=== PATIENT | male | born 1945 | race Caucasian/White ===

== ENCOUNTER 2019-05-06 11:23 | Emergency (ER) | payer MEDICARE, OTHER, SELFPAY ==
[2019-05-06 11:24] VITALS: BP 144/80; PULSE 80; RESP 18; TEMP 36.1; O2SAT 98; BMI 29.0
--- NOTE | 2019-05-06 12:16 | EKG12_ITS ---
Test Reason : Blood Pressure : / mmHG Vent. Rate : 076 BPM Atrial Rate : 076 BPM P-R Int : 152 ms QRS Dur : 130 ms QT Int : 402 ms P-R-T Axes : 025 056 030 degrees QTc Int : 452 ms Sinus rhythm with Premature atrial complexes Right bundle branch block Inferior infarct , age undetermined Abnormal ECG Confirmed by KERMIT HERNANDEZ, BRYANNA ([id number]), deputy editor in chief KARLA HIRSCH ([id number]) on 05/10/2019 9:20:35 AM Referred By: ROBINSON Confirmed By:OSVALDO CARMEN MD
[2019-05-06 12:24] VITALS: O2SAT 94
--- NOTE | 2019-05-06 12:25 | RAD_ITS ---
STUDY: X-RAY CHEST REASON FOR EXAM: Male, 74 years old. One-month history of shortness of breath and weakness. TECHNIQUE: Single AP portable view of the chest. COMPARISON: None. FINDINGS: EKG electrodes are seen. The lungs are clear and expanded. There is no demonstrated pleural abnormality. Normal size heart. Normal mediastinum and puma. Normal visualized pulmonary arteries. Normal visualized aortic arch and descending thoracic aorta. There are degenerative changes of the visualized thoracic spine. Normal visualized ribs, clavicles, and shoulders. There is no demonstrated abnormality of the visualized soft tissue structures of the upper abdomen. RAD/Chest 1 View (Portable) IMPRESSION: Normal x-ray examination of the chest. Electronically Signed: Edilson Padilla, at 12:42 EST , Service support ,
[2019-05-06 12:33] VITALS: O2SAT 99
[2019-05-06 12:36] LABS: Absolute Lymphocyte Count 1.35 X10^3/uL (0.83-4.51); Absolute Neutrophil Count 4.7 X10^3/uL (2.0-7.7); Basophil# 0.01 X10^3/uL; Basophil% 0.1 % (0-1); Eosinophil# 0.07 X10^3/uL; Hematocrit 44.1 % (40-54); Hemoglobin 14.2 g/dL (13.0-16.5); Lymphocyte # 1.35 X10^3/ul (4.0); Lymphocyte % 19.8 % (19-41); Mean Corp Hgb Conc 32.2 g/dL (32-36); Mean Corpuscular Hgb 30.5 pg (27.0-32.0); Mean Corpuscular Volume 94.6 fL (80-94); Mean Platelet Vol. 9.7 fl (6.2-12.0); Monocyte# 0.69 X10^3/uL; Monocyte% 10.1 % (0-10); NRBC Flagged by Analyzer 0 % (0-5); Neutrophil # 4.69 X10^3/uL (2.7-7.7); Neutrophil % 68.7 % (47-70); Platelet Count 215 K/mm3 (150-450); RBC Distribution Width CV 13.8 % (11.6-14.6); RBC Distribution Width SD 47.9 fl (35.1-43.9); Red Blood Count 4.66 M/mm3 (4.6-6.2); White Blood Count 6.8 K/mm3 (4.4-11.0)
[2019-05-06 13:01] LABS: Anion Gap 7 (5-15); BUN 26 mg/dL (7-18); Calcium,Total 8.7 mg/dL (8.5-10.1); Chloride 107 mmol/L (98-107); Creatinine, Serum 1.18 mg/dL (0.70-1.30); EST Glomerular Filtration Rate 64 mL/min (>60); Est Glom Filt Rate - Afr Amer 78 mL/min (>60); Estimated Creatinine Clearance 60.28 ml/min; Glucose 110 mg/dL (74-106); Potassium 4.1 mmol/L (3.5-5.1); Sodium Level 143 mmol/L (136-145); Thyroid Stim Hormone (TSH) 3.21 uIU/mL (0.358-3.74)
[2019-05-06 13:46] VITALS: BP 129/74; PULSE 63; RESP 16; O2SAT 96
--- NOTE | 2019-05-06 13:48 | ED.DCSUM_ITS ---
- ER Visit Summary Date of Service: 05/06/19 Chief Complaint: Palpitations History of Present Illness: The patient is a 74 M 3 of hypertension and vertigo. Prior colon cancer with partial colectomy. Patient states that his heart has been skipping beats. He denies any chest pain. Mild associated dyspnea. He has had prior symptoms like this before. He denies any syncope or near syncope. He denies any nausea, vomiting or diarrhea. Physical Examination: L no acute distress vital signs are stable afebrile. Pulse ox 90% on room air no signs of hypoxia. H markable. Neck nontender no lymphadenopathy. Lungs clear to auscultation bilaterally. Heart regular rhythm no murmur. Abdomen soft nontender normal bowel sounds no peritoneal signs. Remedies moves all 4. Neurovascular intact. His left trapezius he has tenderness to the soft tissue consistent with either strained muscle or pinched nerve. Both upper and lower extremities neurovascular intact. Calves are nontender without edema or cords. Equal symmetrical automatic door mechanic strength. Dorsi plantarflexion intact. Neurologically is awake and alert with no focal motor deficits. Test Results: Chest x-ray portable one view shows no acute abnormality read as normal both by myself the radiologist. EKG sinus rhythm rate of 76 with PACs. No signs of ischemia. Right bundle branch block. CBC normal. Chemistries unremarkable creatinine 1.1 normal gap. Troponin normal. TSH 3.21. Emergency Department Course and Treatment: Older male with PACs. Exam otherwise unremarkable. His laboratory and radiographic work-up is unremarkable. On repeat exam he is doing well at 1347. He will be discharged home. Treatment Plan: Continue his current medications. Follow-up with his primary care physician. Return if worse. Disposition: Discharge Impression: Acute palpitations secondary to PACs This note was generated with [employer] dictation software. It may contain incorrect words, spelling, and punctuation that were not noted in review of the chart prior to signing ED Disposition - Plan for ED Patient: Referrals: Care Physician,No Primary [Primary Care Provider] -
--- NOTE | 2019-05-06 13:51 | ED.DEP ---
ED Disposition - Plan for ED Patient: Disposition: Home or Assisted Living Referrals: William Ryan MD [STAFF PHYSICIAN] - 1 Week Additional Instructions: Your labs, chest x-ray and EKG were all unremarkable except for some premature heartbeats. Follow-up with a local primary care physician.
[2019-05-06 14:13] VITALS: BP 139/74; PULSE 60; RESP 18; O2SAT 97
== END 2019-05-06 14:16 | disposition home or self-care (01) ==
PROVIDERS: Emergency Provider Emergency Medicine
DX: R00.2 Palpitations (principal); I49.1 Atrial premature depolarization; I10 Essential (primary) hypertension; I45.10 Unspecified right bundle-branch block; Z85.038 Personal history of other malignant neoplasm of large intestine; Z90.49 Acquired absence of other specified parts of digestive tract; Z79.82 Long term (current) use of aspirin; Z79.899 Other long term (current) drug therapy
CPT/HCPCS: 71045; 80048; 84443; 84484; 85025; 93005; 99284; A4216

== ENCOUNTER → 2019-06-07 11:34 | Outpatient (CLI) | payer MEDICARE, OTHER, SELFPAY ==
[2019-06-07 13:56] LABS: Absolute Lymphocyte Count 1.18 X10^3/uL (0.83-4.51); Basophil# 0.02 X10^3/uL; Basophil% 0.4 % (0-1); Eosinophil# 0.12 X10^3/uL; Eosinophils% 2.4 % (0-5); Hematocrit 42.8 % (40-54); Hemoglobin 13.4 g/dL (13.0-16.5); Lymphocyte # 1.18 X10^3/ul (4.0); Lymphocyte % 24.1 % (19-41); Mean Corp Hgb Conc 31.3 g/dL (32-36); Mean Corpuscular Hgb 29.9 pg (27.0-32.0); Mean Corpuscular Volume 95.5 fL (80-94); Mean Platelet Vol. 10.4 fl (6.2-12.0); Monocyte# 0.53 X10^3/uL; Monocyte% 10.8 % (0-10); NRBC Flagged by Analyzer 0 % (0-5); Neutrophil # 3.04 X10^3/uL (2.7-7.7); Neutrophil % 62.1 % (47-70); Platelet Count 200 K/mm3 (150-450); RBC Distribution Width CV 13.5 % (11.6-14.6); RBC Distribution Width SD 48.1 fl (35.1-43.9); Red Blood Count 4.48 M/mm3 (4.6-6.2); White Blood Count 4.9 K/mm3 (4.4-11.0)
[2019-06-07 14:22] LABS: Microalbumin,Random Urine 15.9 mg/L (NO RANGE EST.); Microalbumin:Creatinine Ratio 7.5 mg/g CRE (<30 mg/g CRE)
[2019-06-07 14:54] LABS: Cholesterol 245 mg/dL (200); High Density Lipoprotein 39 mg/dL; Magnesium 1.9 mg/dL (1.6-2.6); Thyroid Stim Hormone (TSH) 3.12 uIU/mL (0.358-3.74); Triglycerides 305 mg/dL; Very Low Density Lipoprotein 61 mg/dL (5-40)
== END ==
PROVIDERS: Family Provider Family Medicine; PCP Family Medicine; Referring Provider Family Medicine; Visit Provider Family Medicine
DX: E78.5 Hyperlipidemia, unspecified (principal); R00.2 Palpitations; I10 Essential (primary) hypertension
CPT/HCPCS: 36415; 80061; 82043; 82570; 83735; 84443; 85025

== ENCOUNTER → 2019-07-30 13:54 | Outpatient (CLI) | payer MEDICARE, OTHER, SELFPAY ==
[2019-07-30 15:53] LABS: Cholesterol 189 mg/dL (200); High Density Lipoprotein 44 mg/dL; Triglycerides 192 mg/dL; Very Low Density Lipoprotein 38 mg/dL (5-40)
== END ==
PROVIDERS: PCP Family Medicine; Referring Provider Family Medicine; Visit Provider Family Medicine
DX: E78.5 Hyperlipidemia, unspecified (principal)
CPT/HCPCS: 36415; 80061

== ENCOUNTER 2020-06-10 12:16 | Inpatient (IN) | payer MEDICARE, OTHER, SELFPAY ==
[2020-06-10 12:25] VITALS: BP 151/86; PULSE 79; RESP 16; TEMP 36.2; O2SAT 96; BMI 30.4
--- NOTE | 2020-06-10 12:40 | EKG12_ITS ---
Test Reason : Blood Pressure : / mmHG Vent. Rate : 078 BPM Atrial Rate : 078 BPM P-R Int : 156 ms QRS Dur : 140 ms QT Int : 428 ms P-R-T Axes : 000 053 003 degrees QTc Int : 487 ms Normal sinus rhythm Right bundle branch block Abnormal ECG Confirmed by KERMIT HERNANDEZ, BRYANNA ([id number]), deputy editor in chief CISCO BERMEO ([id number]) on 06/15/2020 10:10:28 AM Referred By: SWATI Confirmed By:OSVALDO CARMEN MD
--- NOTE | 2020-06-10 12:40 | RAD_ITS ---
STUDY: X-RAY CHEST REASON FOR EXAM: Male, 75 years old. COUGH TECHNIQUE: Single AP portable upright view of the chest. COMPARISON: Portable AP upright chest x-ray 05/06/2019 FINDINGS: There is subtle vague increased density in the medial right base that could reflect evolving volume loss and crowding versus infiltrate. The left lung is clear and expanded. There is no demonstrated pleural abnormality. Normal size heart. Calcific density in the subcarinal/azygous region is consistent with a calcified lymph node. Normal visualized pulmonary arteries. Normal visualized aortic arch and descending thoracic aorta. There are stable degenerative changes of the visualized thoracic spine. 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 There is no demonstrated abnormality of the visualized soft tissue structures of the upper abdomen. RAD/Chest 1 View (Portable) IMPRESSION: Evolving volume loss and crowding versus infiltrate in the medial right base. Electronically Signed: Hair Vickers MD at 14:22 EST , Service support ,
--- NOTE | 2020-06-10 12:43 | ED.DCSUM_ITS ---
- ER Visit Summary Date of Service: 06/10/20 Chief Complaint: Headaches, weakness, abdominal pain History of Present Illness: The patient is a 75 M who presents with headaches, weakness, and abdominal pain that is been getting worse over the past 10 days. Patient states he was tested on 06/01/2020 for COVID-19. Patient states his results came back 06/03/2020 and were positive. Patient admits to general myalgias, neck pain, and back pain. Patient admits to a cough but denies any sputum production. Patient admits to some nausea and vomiting. Patient also admits to some dysuria but denies any hematuria. Patient admits to some rhinorrhea and sore throat. Patient denies any fevers or chills. Physical Examination: Vital signs are stable. Patient is afebrile. Patient is in no acute distress. Oral mucosa is pink and moist. Neck is supple. Trachea is midline. There is no JVD. Heart was regular rate and rhythm. Lungs are clear but diminished bilaterally. There is good respiratory effort noted. Abdomen is soft. Bowel sounds are normal. There is no tenderness. Cranial nerves II through XII are intact. There are no focal motor or sensory deficits noted. Skin is warm and dry. Extremities are intact. There there is no calf tenderness or edema. Test Results: EKG shows a normal sinus rhythm with a rate of 78. There is right bundle branch block. This was unchanged compared to previous EKG dated 05/06/2019. This was interpreted by myself. Portable chest x-ray was obtained. There was one view. On my interpretation there is a questionable right lower lobe infiltrate medially. There is no cardiomegaly. Bony thorax is normal. Radiologist also interpreted the x-ray and agrees. CBC shows a white count of 11.1 and platelets of 142. Comprehensive metabolic profile was within normal limits. Troponin was normal. Lactate was elevated at 2.9. Urinalysis shows leukocyte esterase of 500 with 5-10 white blood cells, 0 epithelial cells, and 1+ bacteria. Urine culture and blood cultures were obtained and are pending. Emergency Department Course and Treatment: Patient was given a dose of Rocephin here. Since the patient is symptomatic with dysuria and urgency, I believe the patient does have a urinary tract infection. Patient most likely is developing sepsis from this. Case was discussed with the hospitalist. Patient will be admitted to the hospital. Patient understood and was agreeable with the plan. All questions were answered. Disposition: Admit to hospital Impression: 1. Severe sepsis 2. Urinary tract infection 3. COVID-19 This note was generated with [employer] dictation software. It may contain incorrect words, spelling, and punctuation that were not noted in review of the chart prior to signing ED Disposition - Plan for ED Patient: Disposition: Acute Care Hospital [facility] Referrals: William Ryan MD [Primary Care Provider] -
[2020-06-10 13:26] LABS: Mucous, Urine 0 SEEN /hpf (<or=2+); Red Blood Cells-Urine 0 SEEN /hpf (0-5); Squamous Epithelial Cells - UA 0 SEEN /hpf (0-5)
[2020-06-10 13:30] LABS: Absolute Lymphocyte Count 0.64 X10^3/uL (0.83-4.51); Absolute Neutrophil Count 9.5 X10^3/uL (2.0-7.7); Basophil# 0.01 X10^3/uL; Basophil% 0.1 % (0-1); Hematocrit 41.5 % (40-54); Hemoglobin 13.2 g/dL (13.0-16.5); Lymphocyte # 0.64 X10^3/ul (4.0); Lymphocyte % 5.8 % (19-41); Mean Corp Hgb Conc 31.8 g/dL (32-36); Mean Corpuscular Hgb 29.8 pg (27.0-32.0); Mean Corpuscular Volume 93.7 fL (80-94); Monocyte# 0.85 X10^3/uL; Monocyte% 7.7 % (0-10); NRBC Flagged by Analyzer 0 % (0-5); Neutrophil # 9.52 X10^3/uL (2.7-7.7); Platelet Count 142 K/mm3 (150-450); RBC Distribution Width CV 13.8 % (11.6-14.6); RBC Distribution Width SD 47.9 fl (35.1-43.9); Red Blood Count 4.43 M/mm3 (4.6-6.2); White Blood Count 11.1 K/mm3 (4.4-11.0)
[2020-06-10 13:56] LABS: Color, Urine Straw (Yellow); Glucose, Dipstick Normal (Normal); Ketone-Dipstick Negative (Negative); Urine Bilirubin Dipstick Negative (Negative); Urine Clarity Clear (Clear)
[2020-06-10 13:57] LABS: Bacteria 1+ /hpf (None Seen); Leukocyte Esterase-Dipstick 500 /ul (Negative); Nitrite-Dipstick Negative (Negative); Occult Blood-Urine 25 /ul (Negative); Protein-Dipstick Negative (Negative); Specific Gravity, Urine 1.005 (1.002-1.030); Urine Urobilinogen Normal (Normal); Urine pH 6.5 (5.0 - 8.0); White Blood Cells 5-10 SEEN /hpf (0-5)
[2020-06-10 14:12] LABS: Lactic Acid 2.9 mmol/L (0.4-1.9)
[2020-06-10 14:13] LABS: ALB/GLOB Ratio 0.9 RATIO (0.9-2.4); AST(SGOT) 25 U/L (15-37); Alanine Aminotransfer ALT/SGPT 31 U/L (16-61); Albumin, Serum 3.7 g/dL (3.2-5.0); Alkaline Phosphatase 97 U/L (45-117); Anion Gap 9 (5-15); BUN 10 mg/dL (7-18); BUN/Creat Ratio 8.9 RATIO (10-20); Calcium,Total 8.6 mg/dL (8.5-10.1); Chloride 100 mmol/L (98-107); Creatinine, Serum 1.12 mg/dL (0.70-1.30); EST Glomerular Filtration Rate 68 mL/min (>60); Est Glom Filt Rate - Afr Amer 82 mL/min (>60); Estimated Creatinine Clearance 62.55 ml/min; Globulin 4.1 g/dL (2.2-4.2); Glucose 131 mg/dL (74-106); Potassium 3.7 mmol/L (3.5-5.1); Protein, Total 7.8 g/dL (6.4-8.2); Sodium Level 137 mmol/L (136-145)
[2020-06-10 14:33] VITALS: BP 165/83; PULSE 79; RESP 14; TEMP 37.6; O2SAT 94
[2020-06-10] MEDS: Ceftriaxone 1 GM/50 ML BAG IV (15:15)
--- NOTE | 2020-06-10 15:38 | HP.PCM_ITS ---
Problem List (1) Severe sepsis Status: Acute (2) Pneumonia due to COVID-19 virus Status: Acute (3) Complicated urinary tract infection Status: Acute (4) Hypertension Status: Chronic Qualifiers: Hypertension type: essential hypertension Qualified Code(s): I10 - Essential (primary) hypertension (5) GERD (gastroesophageal reflux disease) Status: Chronic Qualifiers: Esophagitis presence: esophagitis presence not specified Qualified Code(s): K21.9 - Gastro-esophageal reflux disease without esophagitis (6) Obesity (BMI 30.0-34.9) Status: Chronic History of Present Illness Date of Admission: 06/10/20 Chief Complaint: Recent COVID +, diarrhea, headache, stomach discomfort The patient is a 75 y/o M w/ PMHx: Hx Colon CA, Hypertension, GERD, Obesity who presents to the [facility] ED on 06/10/20 with history of ongoing headaches, fatigue, malaise or myalgias, sore throat and rhinorrhea, abdominal cramping with nausea with occasional emesis which has been worsening over the last 10 days with cough as well as dyspnea complaint in addition to mild dysuria/urinary frequency x 3 days with recent 06/01/2020 Covid testing noted positive from [facility] he notes. His is also ill with similar symptoms and was also diagnosed COVID positive. Work-up in the ED included T 99.7, heart rate 79, BP 165/83, respiratory rate 14, 94% on room air, CBC with WC 11.1, hemoglobin 13.2, platelet 142 with left shift and concurrent lymphopenia, CMP with glucose 131, lactic acid 2.9, troponin less than 0.015, urinalysis with negative nitrite, leukocyte esterase 500, urine WBCs 5-10 with 1+ urine bacteria, blood culture x2 pending per ED, urine culture pending per ED, chest x-ray with evolving volume loss and crowding versus infiltrate in the medial right base. In the ED patient ministered Tylenol and Rocephin therapy as well as Decadron initiation given oxygenation in the low 90s while in the ED. Past Medical History Past Medical History (Chronic Problems): Chronic Problems Hypertension (Chronic) GERD (gastroesophageal reflux disease) (Chronic) Obesity (BMI 30.0-34.9) (Chronic) Allergies codeine Allergy (Verified 05/06/19 11:28) Other FLUSHED Surgical History: - - Colon cancer resection, left-sided inguinal hernia x2. Psychiatric History: No pertinent psych hx Lives: Spouse/ Significant Other Smoking Status: Never smoker Tobacco Use: Non-smoker Alcohol: None Drugs: None - *Family History Maternal History Items: Cancer - Mother with a history of lung cancer with significant tobacco use history concurrently. Paternal History Items: - - Patient notes that his father did have unfortunately trauma with a crush limb working in the mines with resection but otherwise was healthy with no history of heart disease, diabetes, cancer. Review of Systems Constitutional: Reports: Anorexia, Chills, Fever, Malaise, Weakness, Fatigue. Denies: Weight Change HEENT: Reports: Head Aches. Denies: Sinus Congestion, Sinus Drainage Cardiovascular: Denies: Chest Pain, Palpitations Respiratory: Reports: Cough, Shortness of Breath, Shortness of breath at rest, Shortness of breath upon exertion. Denies: Sputum production Gastrointestinal: Reports: Abdominal Pain, Diarrhea, Nausea, Vomiting Genitourinary: Denies: Dysuria Musculoskeletal: Reports: Joint Pain, Muscle pain. Denies: Joint Tenderness Skin: Denies: Rash, Wounds Neurological: Denies: Numbness, Tingling, Focal weakness Psychiatric: Denies: Anxiety, Depression, Homicidal Ideations, Suicidal Ideations Hematologic/ Lymphatic: Denies: Easy Bruising, Easy Bleeding VTE Information - Inpt Only VTE Present on Admission: No VTE Mechan Device Prophylaxis: SCD's VTE Pharm Prophylaxis ordered?: Yes Subjective: Seated upright in ED bed, fatigued and notes he is uncomfortable. Objective: Physical Examination: General: awake, alert, oriented x 3 and cooperative, seated upright in the ED bed, fatigued and uncomfortable appearing Skin: normal color, turgor, no icterus, cyanosis. HEENT: AT/NC, EOMI, PERRLA, dry MM. Lungs: Diminished breath sounds, greater bases, decreased effort, no rales, ronchi or wheezing. Heart: Regular rate and rhythm; no gallop, rub audible. Abdomen: soft, mild generalized discomfort with palpation but no rebound or guarding, nondistended, hyperactive bowel sounds, no obvious HSM. Extremities: no cyanosis, clubbing, or edema. Neurological: patient awake, alert, oriented as noted; cognitive function intact; pupils equally reactive to light and accomodation; cranial nerves II-XII grossly normal, moving all 4 extremities, no focal deficits, strength moderately to severely global decrease given acute presentation. Psychiatric: affect appears fatigued, uncomfortable appearing, no acute evidence of depressive or anxiety feelings. - Physical Exam Vitals/I&O's: Vital Signs Temp Pulse Resp BP Pulse Ox 99.7 F H 79 14 165/83 H 94 06/10/20 14:33 06/10/20 14:33 06/10/20 14:33 06/10/20 14:33 06/10/20 14:33 Oxygen Delivery Method Room Air Weight: 224 lb 10.417 oz Body Mass Index (BMI) 30.4 Laboratory Results 06/10/20 13:11: WBC 11.1 H, RBC 4.43 L, Hgb 13.2, Hct 41.5, MCV 93.7, MCH 29.8, MCHC 31.8 L, RDW Std Deviation 47.9 H, RDW Coeff of Wily 13.8, Plt Count 142 L, MPV 10.0, Immature Gran % (Auto) 0.400, Neut % (Auto) 86.0 H, Lymph % (Auto) 5.8 L, [place] % (Auto) 7.7, Eos % (Auto) 0.0, Baso % (Auto) 0.1, Absolute Neuts (auto) 9.5 H, Absolute Lymphs (auto) 0.64 L, Nucleated RBC % 0 06/10/20 13:11: Sodium 137, Potassium 3.7, Chloride 100, Carbon Dioxide 28.0, Anion Gap 9, BUN 10, Creatinine 1.12, Estim Creat Clear Calc 62.55, Est GFR (MDRD) Af Amer 82, Est GFR (MDRD) Non-Af 68, BUN/Creatinine Ratio 8.9 L, Glucose 131 H, Calcium 8.6, Total Bilirubin 0.60, AST 25, ALT 31, Alkaline Phosphatase 97, Troponin I < 0.015, Total Protein 7.8, Albumin 3.7, Globulin 4.1, Albumin/Globulin Ratio 0.9 06/10/20 13:11: Lactic Acid 2.9 H* 06/10/20 13:11: Urine Color Straw, Urine Clarity Clear, Urine pH 6.5, Ur Specific [place] 1.005, Urine Protein Negative, Urine Glucose (UA) Normal, Urine Ketones Negative, Urine Occult Blood 25 H, Urine Nitrite Negative, Urine Bilirubin Negative, Urine Urobilinogen Normal, Ur Leukocyte Esterase 500 H, Urine RBC 0 SEEN, Urine WBC 5-10 SEEN, Ur Squamous Epith Cells 0 SEEN, Urine Bacteria 1+, Urine Mucus 0 SEEN Assessment/Plan All Active Problems Severe sepsis (Acute) Pneumonia due to COVID-19 virus (Acute) Complicated urinary tract infection (Acute) The patient is a 75 y/o M w/ PMHx: Hypertension, GERD, Obesity who presents to the [facility] ED on 06/10/20 with history of ongoing headaches, fatigue, malaise or myalgias, sore throat and rhinorrhea, abdominal cramping with nausea with occasional emesis which has been worsening over the last 10 days with cough as well as dyspnea complaint in addition to mild dysuria/urinary frequency x 3 days with recent 06/01/2020 [facility] testing [facility] he notes. 1. Acute Severe Sepsis, Multifactorial, secondary to Pneumonia secondary to Acute Viral Syndrome, COVID-19 and #2 Acute Complicated UTI: Will admit to the COVID unit, will maintain on oxygen with wean as tolerated to room air, maintain on IV Rocephin given concurrent symptomatic UTI, HOB, IS parameters w/ pending sputum cultures, respiratory viral panel and urine antigens, will obtain procalcitonin, CRP, CPK, Ferritin, LDH, D-dimer, continue supportive care including q 2 hour turning including prone given no prone bed availability and judicious hydration, closely monitor for worsening status for ARDS and multiorgan failure, consult infectious disease for evaluation and consideration remdesivir, initiate decadron given oxygen at rest 94% and noted to decrease with activity upon evaluation in the ED, trend lactic acid. 2. Acute Urinary Tract Infection: UA upon ED evaluation mildly remarkable, pending UCx, continue judicious IVFs, monitor I/Os, monitor for retention, continue IV Rocephin w/ transition as able pending sensitivities and speciation. Bld cx x 2 obtained in the ED. 3. Hyperglycemia: Admission glucose 131, mildly elevated, if further elevated to given presentation and planned usage of steroid regimen will obtain A1c. 4. Hypertension: Continue home regimen including lisinopril once dosing clarified, PRN hydralazine. 5. GERD: We will maintain on famotidine. 6. History of colon cancer: Status post resection, remission. 7. DVT prophylaxis: SCDs, Lovenox. 8. CODE status: Patient does not have healthcare power of estate attorney nor living will set up but notes it is his intention to make his daughters healthcare power of estate attorney. His is living currently. Noted he may discuss these items with case management/social work for assistance. Discussed CODE status at length including difference between FULL code, DNR-CCA and DNR-CC status. Following discussions about the differences in these status, requested Full Code status. Advanced Care Planning Face to Face Time: 16 minutes. Inpatient E&M: 18980 Init Hosp L3 Procedures: 35618 Advncd Care Plan 30 Min
[2020-06-10] MEDS: dexAMETHasone 10 MG/ML Vial IV (15:53)
[2020-06-10] MEDS: Ondansetron 4 MG/2 ML Vial IV (16:04)
[2020-06-10 16:18] VITALS: BP 164/93; PULSE 77; RESP 18; TEMP 37.5; O2SAT 94
[2020-06-10] MEDS: Acetaminophen 500 MG Tablet 1000 MG PO (16:23)
[2020-06-10 17:24] LABS: Reflex Lactate? Y
[2020-06-10 17:35] VITALS: BP 138/73; PULSE 76; RESP 18; TEMP 37.2; O2SAT 94
[2020-06-10 18:02] LABS: Lactic Acid 1.3 mmol/L (0.4-1.9)
[2020-06-10 18:26] VITALS: BMI 29.4
[2020-06-10 18:45] VITALS: BP 142/81; PULSE 75; RESP 18; TEMP 37.1; O2SAT 92
[2020-06-10 18:58] LABS: BNP,B-Type NATRIURETIC PEPTIDE 38.4 pg/mL (0-100)
[2020-06-10 19:01] LABS: Ferritin 381 ng/mL (26-388); LDH 231 U/L (87-241); Magnesium 1.6 mg/dL (1.6-2.6)
[2020-06-10 19:30] LABS: D-Dimer Quantitative (DVT/PE) 0.68 FEU/ug/m (0.27-0.49)
[2020-06-10 19:45] VITALS: O2SAT 95
[2020-06-10] MEDS: 0.9% Normal Saline 1,000 ML 100 ML IV (19:54)
[2020-06-10] MEDS: Enoxaparin 30 MG/0.3 ML Syringe SC (19:55)
[2020-06-10] MEDS: Famotidine 20 MG Tablet PO (19:55)
[2020-06-10 20:54] LABS: Procalcitonin 0.15 ng/mL (0.00-0.09)
[2020-06-11 00:45] VITALS: BP 142/72; PULSE 57; RESP 18; TEMP 36.3; O2SAT 95
[2020-06-11 04:15] VITALS: BP 129/71; PULSE 53; RESP 18; TEMP 36.2; O2SAT 98
[2020-06-11 06:53] LABS: Absolute Neutrophil Count 11.8 X10^3/uL (2.0-7.7); Basophil# 0.01 X10^3/uL; Basophil% 0.1 % (0-1); Hematocrit 37.1 % (40-54); Hemoglobin 11.9 g/dL (13.0-16.5); Lymphocyte % 5.2 % (19-41); Mean Corp Hgb Conc 32.1 g/dL (32-36); Mean Corpuscular Hgb 30.2 pg (27.0-32.0); Mean Corpuscular Volume 94.2 fL (80-94); Mean Platelet Vol. 10.4 fl (6.2-12.0); Monocyte# 0.87 X10^3/uL; Monocyte% 6.5 % (0-10); NRBC Flagged by Analyzer 0 % (0-5); Neutrophil # 11.76 X10^3/uL (2.7-7.7); Neutrophil % 87.7 % (47-70); Platelet Count 144 K/mm3 (150-450); RBC Distribution Width SD 47.8 fl (35.1-43.9); Red Blood Count 3.94 M/mm3 (4.6-6.2); White Blood Count 13.4 K/mm3 (4.4-11.0)
[2020-06-11 07:34] LABS: ALB/GLOB Ratio 0.8 RATIO (0.9-2.4); AST(SGOT) 25 U/L (15-37); Alanine Aminotransfer ALT/SGPT 25 U/L (16-61); Albumin, Serum 2.9 g/dL (3.2-5.0); Alkaline Phosphatase 75 U/L (45-117); Anion Gap 8 (5-15); BUN 13 mg/dL (7-18); BUN/Creat Ratio 12.5 RATIO (10-20); Chloride 105 mmol/L (98-107); Creatinine, Serum 1.04 mg/dL (0.70-1.30); EST Glomerular Filtration Rate 74 mL/min (>60); Est Glom Filt Rate - Afr Amer 90 mL/min (>60); Estimated Creatinine Clearance 67.36 ml/min; Globulin 3.7 g/dL (2.2-4.2); Glucose 170 mg/dL (74-106); Potassium 3.6 mmol/L (3.5-5.1); Protein, Total 6.6 g/dL (6.4-8.2); Sodium Level 138 mmol/L (136-145)
[2020-06-11 08:29] VITALS: BP 148/80; PULSE 58; RESP 18; TEMP 36.4; O2SAT 96
[2020-06-11] MEDS: dexAMETHasone 10 MG/ML Vial 6 MG IV (08:35)
[2020-06-11] MEDS: Famotidine 20 MG Tablet PO (08:36)
[2020-06-11] MEDS: Enoxaparin 30 MG/0.3 ML Syringe SC (08:36)
[2020-06-11] MEDS: Ceftriaxone 1 GM/50 ML BAG IV (11:20)
--- NOTE | 2020-06-11 12:06 | DCINST_ITS ---
- Discharge Diagnoses Current Active Problems: Current Active and Chronic Problems (Last Updated 06/10/20 @ 18:34 by Faye Rios RN) 1. Acute Severe Sepsis, Multifactorial, secondary to Pneumonia secondary to Acute Viral Syndrome, COVID-19 and #2 Acute E. Coli UTI 2. Acute E. Coli Urinary Tract Infection 3. Hypertension: Continue home regimen including lisinopril once dosing clarified, PRN hydralazine. 4. GERD 5. History of colon cancer: You will use the following diet at home:: Cardiac Your food should be the consistency of: Regular Your liquids should be the consistency of: Regular/Thin Discharge Activity: - - Encourage routine activity and movement. Continue to use your incentive spirometer 10x/hr 7a-7p or from waking to bedtime to assist with improvement of your pulmonary status. Call your doctor if you observe: Fever of 101 or Higher, Inability to urinate, Inability to have a bowel movement, Shortness of breath, Dizziness, Fainting spells, Chest pain, Uncontrolled pain Instructions: Coronavirus Disease 2019 (COVID-19): Overview, Coronavirus Disease 2019 (COVID-19): Caring for Yourself or Others, COVID-19: Lying in a Prone Position (Proning), Preventing the Spread of Infection Understanding Isolation Procedures, ED Urinary Tract Infections in Men Additional Instructions: Given your positive Covid status and symptom onset timeline with during admission noted oxygenation 94% you are considered severe therefore we recommend strongly quarantine of 21-day timeline which would be completed on 06/18/19. Please complete your decadron regimen. Please continue to take also the keflex for noted E. Coli urinary tract infection likely contributing to how you were feeling at ED presentation. We will contact you if your sensitivities are not co nsistent with keflex as an alternate medication may be needed. During the admission you reported being on lisinopril for elevated blood pressure. We were unable to clarify the dose and have started you on low dose 5 mg to be cautious but this may be increased depending on your repeat levels in the office with Dr. Ryan. When can positive or suspected COVID-19 patients be discharged, what are the requirements and what needs to be in place for discharge? ?They can be discharged when they are clinically stable. ?They do not need to meet criteria for transmission-based precautions to be dis charged as these may be continued at home. ?Patient needs to be able to call for assistance if worsens. ?Household members must have access to PPE and willing to adhere to precaution measures at home. ?The patient needs preferentially to have access to a separate bedroom and bathroom. ?Members in the household must not be at increased risk of COVID-19. ?Must be able to be transported by private vehicle and racecar driver abide personal PPE. Home going instructions: ?Patient to continue similar isolation as in hospital and those also in the home to continue precautions until isolation complete. Transmission-based Precaution Timeline: ?Patients with a confirmed or high suspicion of COVID-19 should remain under home isolation until cleared per infectious disease as noted above. ?Further testing is not required beyond this unless there was noted organ dysfunction. Follow-up Care: ?The primary care should be informed of a COVID-19 positive test if resulted while in the hospital and virtual versus in person follow-up should be arranged. Allergies/Adverse Reactions: Allergies codeine Allergy (Verified 05/06/19 11:28) Other FLUSHED Medications to take at Discharge Albuterol IH (ProAir) [Proair Hfa] 4 - 8 puff INHALATION Q4H PRN PRN #1 inhaler 06/11/20 Cephalexin [Keflex] 500 mg PO Q6 5 Days #20 cap 06/11/20 Dexamethasone [Decadron] 6 mg PO DAILY 8 Days #8 tab 06/11/20 Famotidine [Pepcid] 20 mg PO BID #60 tab 06/11/20 Lisinopril 5 mg PO DAILY #30 tab 06/11/20 The following prescriptions were given: Dexamethasone [Decadron] 6 mg PO DAILY 8 Days #8 tab Transmission Status: [id number] Cephalexin [Keflex] 500 mg PO Q6 5 Days #20 cap Transmission Status: [facility] to [id number] Lisinopril 5 mg PO DAILY #30 tab Transmission Status: [id number] Famotidine [Pepcid] 20 mg PO BID #60 tab Transmission Status: [id number] Albuterol IH (ProAir) [Proair Hfa] 4 - 8 puff INHALATION Q4H PRN PRN #1 inhaler PRN Reason: Dyspnea, wheezing Transmission Status: [id number] Primary Care Physician: William Ryan MD [Primary Care Provider] - Please follow up with your Primary Care Physician in: Follow-up within 3-5 days to review admission and re-establish. Test Results: Test results from this visit will be discussed in further detail at your follow- up appointment, if applicable. Proposed Discharge Date: 06/11/20
--- NOTE | 2020-06-11 12:13 | DS.PCM_ITS ---
Discharge Date and Diagnosis - Problem List Patient Problems: Active and Suspected Problems (Last Updated 06/10/20 @ 18:34 by Faye Rios RN) Severe sepsis (Acute) Pneumonia due to COVID-19 virus (Acute) Complicated urinary tract infection (Acute) Date of Admission: 06/10/20 Date of Discharge: 06/11/20 - Primary Discharge Diagnosis Acute Problems: Active Problems (Last Updated 06/10/20 @ 18:34 by Faye Rios RN) 1. Acute Severe Sepsis, Multifactorial, secondary to Pneumonia secondary to Acute Viral Syndrome, COVID-19 and #2 Acute E. Coli UTI 2. Acute E. Coli Urinary Tract Infection 3. Hypertension 4. GERD 5. History of colon cancer - Secondary Discharge Diagnosis Chronic Problems: Chronic Problems (Last Updated 06/10/20 @ 18:34 by Faye Rios RN) Hypertension (Chronic) GERD (gastroesophageal reflux disease) (Chronic) Obesity (BMI 30.0-34.9) (Chronic) Hospital Course and Treatment Operations: None Procedures: EKG Summary of Care Provided: The patient is a 75 y/o M w/ PMHx: Hx Colon CA, Hypertension, GERD, Obesity who presented to the [facility] ED on 06/10/20 with history of ongoing headaches, fatigue, malaise or myalgias, sore throat and rhinorrhea, abdominal cramping with nausea with occasional emesis which has been worsening over the last 10 days with cough as well as dyspnea complaint in addition to mild dysuria/urinary frequency x 3 days with recent 06/01/2020 [facility] testing [facility] he notes. His is also ill with similar symptoms and was also diagnosed COVID positive. Work-up in the ED included T 99.7, heart rate 79, BP 165/83, respiratory rate 14, 94% on room air, CBC with WC 11.1, hemoglobin 13.2, platelet 142 with left shift and concurrent lymphopenia, CMP with glucose 131, lactic acid 2.9, troponin less than 0.015, urinalysis with negative nitrite, leukocyte esterase 500, urine WBCs 5-10 with 1+ urine bacteria, blood culture x2 pending per ED, urine culture pending per ED, chest x-ray with evolving volume loss and crowding versus infiltrate in the medial right base. In the ED patient ministered Tylenol and Rocephin therapy as well as Decadron initiation given oxygenation in the low 90s while in the ED. The patient was admitted to the COVID unit, remained low 90s on room air, maintained on IV Rocephin given concurrent symptomatic UTI with preliminary culture noting E. Coli, HOB, IS parameters w/ negative respiratory viral panel and negative urine antigens. Lactic acid initially 2.9 decreased to 1.3 following interventions. Ferritin 381, LDH 231, CRP 36.10, BNP 38.4, troponin less than 0.015, procalcitonin 0.15. Given hypoxia with oxygenation low 90s, patient initiated on decadron and evaluated for remdesivir. Given clinical improvement overnight, on 06/11/20 given clinical improvement above expected, patient discharged to home with continued abx therapy for UTI, continued decadron with close early PCP follow- up. Additionally, given inability to clarify home medications, suspect likely not taking regimen but had previously discharged with rx low dose lisinopril also with encouraged continued PCP outpatient evaluation. Noted to patient that if UCx noted resistance to current abx at discharge would notify him of change need. DAY OF DISCHARGE PROGRESS NOTE: Subjective: Patient without acute event overnight per self and nursing report. Patient notes prior abdominal discomfort, dysuria, suprapubic discomfort currently resolved. Patient denies any nausea, emesis and is tolerating diet. He denies any chest pain or marked dyspnea but still has ongoing intermittent cough. He notes feeling improved since initial presentation and is both amenable and eager for discharge to home. Patient will be discharged with follow-up with primary care physician within 3-5 days. Objective: 97.2, heart rate 53, BP 129/71, respiratory rate 18, 98% on room air. Physical Examination: General: awake, alert, oriented x 3 and cooperative, seated upright in the [place] COVID unit bed, no acute distress, notes clinically feeling improved since initial ED presentation. Skin: normal color, turgor, no icterus, cyanosis. HEENT: AT/NC, EOMI, PERRLA, improved MMM. Lungs: Diminished breath sounds but improved at bases, improved effort, no rales, ronchi or wheezing. Heart: Mildly bradycardic with regular rhythm; no gallop, rub audible. Abdomen: soft, notably improved abdominal discomfort, no suprapubic discomfort, ND, normal BS. Extremities: no cyanosis, clubbing, or edema. Neurological: patient awake, alert, oriented as noted; cognitive function appears intact upon questioning,; pupils equally reactive to light and accomodation; cranial nerves II-XII grossly normal, moving all [address] extremities, [address] rength improved, mildly to moderately globally decreased. Psychiatric: affect appears less fatigued, less ill appearing, normal, no acute evidence of depressive or anxiety feelings. Assessment and Plan: Please see hospital summary above. Patient Problems: Active and Suspected Problems (Last Updated 06/10/20 @ 18:34 by Faye Rios RN) Severe sepsis (Acute) Pneumonia due to COVID-19 virus (Acute) Complicated urinary tract infection (Acute) - Physical Exam Vitals/I&O's: Vital Signs Temp Pulse Resp BP Pulse Ox 97.6 F L 58 L 18 148/80 H 96 06/11/20 08:29 06/11/20 08:29 06/11/20 08:29 06/11/20 08:29 06/11/20 08:29 Oxygen Delivery Method Room Air Weight: 214 lb 1.102 oz Body Mass Index (BMI) 29.4 Intake and Output for Last 24 Hours 06/09/20 06/10/20 06/11/20 23:59 23:59 23:59 Intake Total 585.00 / 585.00 955.00 / 955.00 Output Total 350 / 350 Balance 585.00 / 585.00 605.00 / 605.00 Microbiology Past 72 Hours 06/10/20 13:11 Urine, Clean Catch Urine Culture - Preliminary Presumptive E. coli 06/10/20 19:45 Mucosa - Nasopharyngeal Respiratory Panel (PCR) - Final 06/10/20 13:11 Urine, Clean Catch Legionella Antigen - Final 06/10/20 13:11 Urine, Clean Catch Streptococcus pneumoniae Antigen (M - Final Laboratory Results 06/10/20 13:00: Magnesium 1.6, Ferritin 381, Lactate Dehydrogenase 231, C-React Prot Ext Range 36.10 H 06/10/20 13:00: B-Natriuretic Peptide 38.4 06/10/20 13:11: WBC 11.1 H, RBC 4.43 L, Hgb 13.2, Hct 41.5, MCV 93.7, MCH 29.8, MCHC 31.8 L, RDW Std Deviation 47.9 H, RDW Coeff of Wily 13.8, Plt Count 142 L, MPV 10.0, Immature Gran % (Auto) 0.400, Neut % (Auto) 86.0 H, Lymph % (Auto) 5.8 L, [place]owndes % (Auto) 7.7, Eos % (Auto) 0.0, Baso % (Auto) 0.1, Absolute Neuts (auto) 9.5 H, Absolute Lymphs (auto) 0.64 L, Nucleated RBC % 0 06/10/20 13:11: Sodium 137, Potassium 3.7, Chloride 100, Carbon Dioxide 28.0, Anion Gap 9, BUN 10, Creatinine 1.12, Estim Creat Clear Calc 62.55, Est GFR (MDRD) Af Amer 82, Est GFR (MDRD) Non-Af 68, BUN/Creatinine Ratio 8.9 L, Glucose 131 H, Calcium 8.6, Total Bilirubin 0.60, AST 25, ALT 31, Alkaline Phosphatase 97, Troponin I < 0.015, Total Protein 7.8, Albumin 3.7, Globulin 4.1, Albumin/Globulin Ratio 0.9 06/10/20 13:11: Lactic Acid 2.9 H* 06/10/20 13:11: Urine Color Straw, Urine Clarity Clear, Urine pH 6.5, Ur Specific Floyd 1.005, Urine Protein Negative, Urine Glucose (UA) Normal, Urine Ketones Negative, Urine Occult Blood 25 H, Urine Nitrite Negative, Urine Bilirubin Negative, Urine Urobilinogen Normal, Ur Leukocyte Esterase 500 H, Urine RBC 0 SEEN, Urine WBC 5-10 SEEN, Ur Squamous Epith Cells 0 SEEN, Urine Bacteria 1+, Urine Mucus 0 SEEN 06/10/20 13:11: D-Dimer Quant (PE/DVT) 0.68 H* 06/10/20 17:30: Lactic Acid 1.3 06/10/20 17:50: Procalcitonin 0.15 H 06/11/20 06:41: WBC 13.4 H, RBC 3.94 L, Hgb 11.9 L, Hct 37.1 L, MCV 94.2 H, MCH 30.2, MCHC 32.1, RDW Std Deviation 47.8 H, RDW Coeff of Wily 14.0, Plt Count 144 L, MPV 10.4, Immature Gran % (Auto) 0.500, Neut % (Auto) 87.7 H, Lymph % (Auto) 5.2 L, [place]own[place] % (Auto) 6.5, Eos % (Auto) 0.0, Baso % (Auto) 0.1, Absolute Neuts (auto) 11.8 H, Absolute Lymphs (auto) 0.70 L, Nucleated RBC % 0 06/11/20 06:41: Sodium 138, Potassium 3.6, Chloride 105, Carbon Dioxide 25.0, Anion Gap 8, BUN 13, Creatinine 1.04, Estim Creat Clear Calc 67.36, Est GFR (MDRD) Af Amer 90, Est GFR (MDRD) Non-Af 74, BUN/Creatinine Ratio 12.5, Glucose 170 H, Calcium 8.0 L, Total Bilirubin 0.40, AST 25, ALT 25, Alkaline Phosphatase 75, Total Protein 6.6, Albumin 2.9 L, Globulin 3.7, Albumin/Globulin Ratio 0.8 L Current Medications Acetaminophen (Acetaminophen 325 Mg Tablet) 650 mg PO Q6H PRN PRN PRN Reason: Pain Score 1-10/Temp > 100.7 F Al Hydroxide/Mg Hydroxide (Mag Hydrox/Al Hydrox/Simeth 30 Ml Udc) 30 ml PO Q6H PRN PRN PRN Reason: Gastric Burning Albuterol Sulfate (Albuterol Ih 8.5 Gm (Proair) Inhaler (200 Puffs)) 4 - 8 puff INHALATION Q4H PRN PRN PRN Reason: Dyspnea, wheezing Dexamethasone Sodium Phosphate (Dexamethasone 10 Mg/Ml Vial) 6 mg IV DAILY [facility] Last Admin: 06/11/20 08:35 Dose: 6 mg Documented by: Enoxaparin Sodium (Enoxaparin 30 Mg/0.3 Ml Syringe) 30 mg SC BID [facility] Last Admin: 06/11/20 08:36 Dose: 30 mg Documented by: Famotidine (Famotidine 20 Mg Tablet) 20 mg PO BID [facility] Last Admin: 06/11/20 08:36 Dose: 20 mg Documented by: Guaifenesin (Guaifenesin 10 Ml Udc (200mg/10ml)) 20 ml PO Q4H PRN PRN PRN Reason: COUGH Hydralazine HCl (Hydralazine 20 Mg/Ml Vial) 10 mg IV Q4H PRN PRN PRN Reason: SBP > 160 Ceftriaxone Sodium (Rocephin) 1 gm in 50 mls @ 100 mls/hr IV Q24 [facility] Stop: 06/18/20 10:01 Last Admin: 06/11/20 11:20 Dose: 100 mls/hr Documented by: Remdesivir 100 mg/ Sodium (Chloride) 250 mls @ 125 mls/hr IV DAILY@2200 [facility] Stop: 06/14/20 23:59 Lisinopril (Lisinopril 5 Mg Tablet) 5 mg PO X1 ONE Stop: 06/11/20 12:12 Magnesium Hydroxide (Magnesium Hydroxide 30 Ml Udc) 30 ml PO DAILY PRN PRN PRN Reason: Constipation Melatonin (Melatonin 3 Mg Tablet) 3 mg PO QHS PRN PRN PRN Reason: INSOMNIA Nitroglycerin (Nitroglycerin (Inpatient Use) 0.4 Mg Tab.Subl) 0.4 mg SUBLINGUAL Q5M PRN PRN Reason: CARDIAC/CHEST PAIN Ondansetron HCl (Ondansetron 4 Mg/2 Ml Vial) 4 mg IV Q8H PRN PRN PRN Reason: NAUSEA/VOMITING Prochlorperazine Edisylate (Prochlorperazine 10 Mg/2 Ml Vial) 5 mg IV Q4H PRN PRN PRN Reason: Breakthrough nausea/vomiting Psyllium Hydrophilic Mucilloid (Psyllium 1 Packet) 1 packet PO DAILY PRN PRN PRN Reason: Constipation Senna/Docusate Sodium (Senna/Docusate Sodium 1 Tablet) 2 tablet PO BID PRN PRN PRN Reason: Constipation Sodium Chloride (0.9% Saline Lock 10 Ml Syringe) 10 - 40 ml IV UD PRN PRN Reason: SALINE FLUSH Throat Lozenges (Benzocaine/Menthol 1 Lozenge) 1 lozenge MUCOUS MEM Q2H PRN PRN PRN Reason: SORE THROAT Discharge Activity: - - Encourage routine activity and movement. Continue to use your incentive spirometer 10x/hr 7a-7p or from waking to bedtime to assist with improvement of your pulmonary status. Call your doctor if you observe: Fever of 101 or Higher, Inability to urinate, Inability to have a bowel movement, Shortness of breath, Dizziness, Fainting spells, Chest pain, Uncontrolled pain Home Medications: Medications to take at Discharge Albuterol IH (ProAir) [Proair Hfa] 4 - 8 puff INHALATION Q4H PRN PRN #1 inhaler 06/11/20 Cephalexin [Keflex] 500 mg PO Q6 5 Days #20 cap 06/11/20 Dexamethasone [Decadron] 6 mg PO DAILY 8 Days #8 tab 06/11/20 Famotidine [Pepcid] 20 mg PO BID #60 tab 06/11/20 Lisinopril 5 mg PO DAILY #30 tab 06/11/20 Following Prescriptions Were Given to Patient: Dexamethasone [Decadron] 6 mg PO DAILY 8 Days #8 tab Transmission Status: [id number] Cephalexin [Keflex] 500 mg PO Q6 5 Days #20 cap Transmission Status: [id number] Lisinopril 5 mg PO DAILY #30 tab Transmission Status: [id number] Famotidine [Pepcid] 20 mg PO BID #60 tab Transmission Status: [id number] Albuterol IH (ProAir) [Proair Hfa] 4 - 8 puff INHALATION Q4H PRN PRN #1 inhaler PRN Reason: Dyspnea, wheezing Transmission Status: [id number] Primary Care Physician: William Ryan MD [Primary Care Provider] - Please follow up with your Primary Care Physician in: Follow-up within 3-5 days to review admission and re-establish. Patient Instructions: Coronavirus Disease 2019 (COVID-19): Overview, Coronavirus Disease 2019 (COVID-19): Caring for Yourself or Others, COVID-19: Lying in a Prone Position (Proning), Preventing the Spread of Infection Understanding Isolation Procedures, ED Urinary Tract Infections in Men Disposition: Home Minutes spent on discharge:: 35 Patient Condition:: Fair Medical Necessity - Tobacco Use Smoking Status: Never smoker Tobacco Use: Non-smoker Meaningful Use Info Meaningful Use Diagnoses (Choose all that apply): None applicable Inpatient E&M: 82382 [facility]
[2020-06-11] MEDS: Lisinopril 5 MG Tablet PO (12:37)
[2020-06-11 13:43] VITALS: O2SAT 96
[2020-06-11 15:50] VITALS: O2SAT 93; O2SAT 94
--- NOTE | 2020-06-11 15:50 | NUR.TO.PHY ---
RN ambulated patient in room. O2 sats held at 94%. Will not need home O2 at discharge
[2020-06-11 15:59] VITALS: BP 151/79; PULSE 67; RESP 18; TEMP 37.1; O2SAT 97
--- NOTE | 2020-06-11 16:47 | NURSING ---
Pt discharged home into the care of girlfriend. SUNI at this time. DC instructions and paperwork given to patient. [facility] [place]. IV d/c and pressure applied. Pt taken to discharge area by MANAGER OF SECURITY in wheelchair. VSS on room air
--- NOTE | 2020-06-12 15:02 | CASEMGMT ---
DARYL CM DC PHONE CALL DC DATE: 04/11/2020 DC DISPOSITION: Home DC DIAGNOSIS: SARS COVID 2 Attempted call to patient. No answer and no voice messaging. Cole MORELN RN ACM
== END 2020-06-11 16:35 | disposition home or self-care (01) | DRG 871 ==
LOC: ED 15:29 → MS2 16:03
PROVIDERS: Admitting Provider Family Medicine; Emergency Provider Emergency Medicine; PCP Family Medicine; Visit Provider Family Medicine
DX: A41.89 Other specified sepsis (principal); U07.1 COVID-19; J12.89 Other viral pneumonia; N39.0 Urinary tract infection, site not specified; B96.20 Unspecified Escherichia coli [E. coli] as the cause of diseases classified elsewhere; R09.02 Hypoxemia; R65.20 Severe sepsis without septic shock; I10 Essential (primary) hypertension; K21.9 Gastro-esophageal reflux disease without esophagitis; E66.9 Obesity, unspecified; Z85.038 Personal history of other malignant neoplasm of large intestine; R73.9 Hyperglycemia, unspecified; I45.10 Unspecified right bundle-branch block; Z79.899 Other long term (current) drug therapy
CPT/HCPCS: 36415; 71045; 80053; 81001; 82728; 83605; 83615; 83735; 83880; 84145; 84484; 85025; 85379; 86140; 87040; 87086; 87088; 87186; 87449; 87633; 93005; 99251; 99285; G0008; J7030; J7050; 90686; A4216; G0463; J2405

== ENCOUNTER → 2020-07-07 | Outpatient (CLI) | payer MEDICARE, OTHER, SELFPAY ==
[2020-06-10 18:26] VITALS: BMI 29.4
== END | disposition home or self-care (01) ==
LOC: LABSPEC 15:54
PROVIDERS: PCP Family Medicine; Visit Provider Family Medicine
DX: N30.90 Cystitis, unspecified without hematuria (principal)
CPT/HCPCS: 87086; 87088; 87186

== ENCOUNTER → 2020-08-07 12:12 | Outpatient (CLI) | payer MEDICARE, OTHER, SELFPAY ==
[2020-08-07 15:13] LABS: Absolute Lymphocyte Count 1.42 X10^3/uL (0.83-4.51); Absolute Neutrophil Count 5.4 X10^3/uL (2.0-7.7); Basophil# 0.03 X10^3/uL; Basophil% 0.4 % (0-1); Eosinophil# 0.18 X10^3/uL; Eosinophils% 2.4 % (0-5); Hematocrit 42.5 % (40-54); Hemoglobin 12.9 g/dL (13.0-16.5); Lymphocyte # 1.42 X10^3/ul (4.0); Lymphocyte % 18.6 % (19-41); Mean Corp Hgb Conc 30.4 g/dL (32-36); Mean Corpuscular Hgb 29.3 pg (27.0-32.0); Mean Corpuscular Volume 96.6 fL (80-94); Mean Platelet Vol. 9.9 fl (6.2-12.0); Monocyte# 0.56 X10^3/uL; Monocyte% 7.3 % (0-10); NRBC Flagged by Analyzer 0 % (0-5); Neutrophil # 5.41 X10^3/uL (2.7-7.7); Neutrophil % 70.9 % (47-70); Platelet Count 292 K/mm3 (150-450); RBC Distribution Width CV 14.7 % (11.6-14.6); RBC Distribution Width SD 53.1 fl (35.1-43.9); White Blood Count 7.6 K/mm3 (4.4-11.0)
[2020-08-07 15:53] LABS: ALB/GLOB Ratio 1.1 RATIO (0.9-2.4); AST(SGOT) 21 U/L (15-37); Alanine Aminotransfer ALT/SGPT 26 U/L (16-61); Albumin, Serum 3.9 g/dL (3.2-5.0); Alkaline Phosphatase 65 U/L (45-117); Anion Gap 8 (5-15); BUN 21 mg/dL (7-18); BUN/Creat Ratio 19.8 RATIO (10-20); Calcium,Total 9.2 mg/dL (8.5-10.1); Chloride 105 mmol/L (98-107); Creatinine, Serum 1.06 mg/dL (0.70-1.30); EST Glomerular Filtration Rate 72 mL/min (>60); Est Glom Filt Rate - Afr Amer 88 mL/min (>60); Ferritin 256 ng/mL (26-388); Globulin 3.5 g/dL (2.2-4.2); Glucose 102 mg/dL (74-106); PSA,Total - Annual Screen 0.97 ng/mL (0.00-4.00); Potassium 4.2 mmol/L (3.5-5.1); Protein, Total 7.4 g/dL (6.4-8.2); Sodium Level 141 mmol/L (136-145); Thyroid Stim Hormone (TSH) 3.64 uIU/mL (0.358-3.74)
[2020-08-07 16:01] LABS: Microalbumin,Random Urine 86.5 mg/L (NO RANGE EST.); Microalbumin:Creatinine Ratio 53.7 mg/g CRE (<30 mg/g CRE)
== END ==
PROVIDERS: PCP Family Medicine; Referring Provider Family Medicine; Visit Provider Family Medicine
DX: R53.83 Other fatigue (principal); I10 Essential (primary) hypertension; Z12.5 Encounter for screening for malignant neoplasm of prostate; R35.1 Nocturia
CPT/HCPCS: 36415; 80053; 82043; 82570; 82728; 84153; 84443; 85025; G0103